=== PATIENT | male | born 1975 | race African-American/Black ===

== ENCOUNTER 2021-08-25 20:03 | Emergency (ER) | payer SELFPAY ==
[~2021-08-25] VITALS: Ht 180.3 cm; Wt 114.0 kg
[2021-08-25] MEDS ORDERED: VISCOUS LIDOCAINE 2% 15 ML UDC MM PRN (23:00)
[2021-08-25] MEDS ORDERED: MAGNESIUM/ALUMINUM HYDROXIDE/SIMETHICONE 30ML UDC PO ONE (23:00)
[2021-08-25] MEDS ORDERED: FAMOTIDINE 20MG TABLET PO ONE (23:00)
[2021-08-26 00:03] LABS: BASOPHILS % 1.3 % (0.0-2.0); EOSINOPHILS % 0.2 % (0.0-5.0); HEMATOCRIT. 43.5 % (42.0-52.0); HEMOGLOBIN. 15.4 g/dL (14.0-18.0); LYMPHOCYTES % 25.1 % (20.0-50.0); MEAN CORPUSCULAR HEMOGLOBIN 32.6 pg (28.0-32.0); MEAN CORPUSCULAR VOLUME 92.2 fL (80.0-94.0); MEAN PLATELET VOLUME 7.5 fl (7.4-10.4); MONOCYTES % 6.6 % (2.0-8.0); NEUTROPHILS % 66.8 % (40.0-76.0); PLATELET 294 x1000/uL (130-400); RED BLOOD CELL COUNT 4.72 mill/uL (4.7-6.1); RED CELL DISTRIBUTION WIDTH 13.3 % (11.6-14.6)
[2021-08-26 00:09] LABS: CLARITY URINE CLEAR (CLEAR); COLOR URINE YELLOW (YELLOW); KETONES URINE TRACE (NEGATIVE); LEUKOCYTE ESTERASE URINE 1+ (NEGATIVE); NITRITE URINE NEGATIVE (NEGATIVE); OCCULT BLOOD URINE NEGATIVE (NEGATIVE); PH URINE 5.5 (4.5-8.0); PROTEIN URINE NEGATIVE (NEGATIVE); SPECIFIC GRAVITY URINE 1.029 (1.005-1.030)
[2021-08-26 00:14] LABS: CHLORIDE 105 mEq/L (98-107)
[2021-08-26] MEDS ORDERED: CEPH500C2 MT (03:36)
[2021-08-26 03:40] VITALS: BP 138/92
== END 2021-08-26 04:00 | disposition home or self-care (01) ==
LOC: ER 20:03
DX: R07.9 Chest pain, unspecified (principal); N39.0 Urinary tract infection, site not specified
CPT/HCPCS: 36415; 71045; 80053; 81003; 85025; 93005; 99284

== ENCOUNTER 2021-11-20 20:07 | Emergency (ER) | payer MEDICAID ==
[~2021-11-20] VITALS: Ht 180.3 cm; Wt 109.0 kg
[~2021-11-20 20:07] MED LIST: CEPH500C2 MT
[2021-11-20 21:37] VITALS: BP 141/84
== END 2021-11-20 22:30 | disposition left against medical advice (07) ==
LOC: ER 20:07
DX: Z53.21 Procedure and treatment not carried out due to patient leaving prior to being seen by health care provider (principal)